=== PATIENT | female | born 1995 | race Caucasian/White ===

== ENCOUNTER 2021-10-01 14:36 | Emergency (ER) | payer OTHER ==
--- NOTE | 2021-10-01 14:50 | EDM.PDOC ---
ED [facility] GENERAL MEDICAL PROBLEM - General Chief Complaint: ENT Problem Stated Complaint: BLOODY NOSE Time Seen by Provider: 10/01/21 14:36 Source of Information: Reports: Patient History Limitations: Reports: No Limitations - History of Present Illness INITIAL COMMENTS - FREE TEXT/NARRATIVE: In the emergency department with complaint of a nosebleed. Patient states that nosebleed started approximately 20 minutes prior to arrival. Patient states that she does not have any injury to her nasal cavity she gets nosebleeds frequently. Patient states that it is more common in the wintertime when it is dry. She does use saline sprays to help keep the mucosal wet. She states that she has had to have her nose cauterized 2 times before related to nasal bleeds. Patient denies any trauma or blood thinners. Onset: Sudden Location: Reports: Head Quality: Reports: Other Severity: Mild Improves with: Reports: None Worsens with: Reports: None ED ROS GENERAL - Review of Systems Review Of Systems: Comprehensive ROS is negative, except as noted in HPI. Constitutional: Reports: No Symptoms HEENT: Reports: Nosebleed Respiratory: Reports: No Symptoms Cardiovascular: Reports: No Symptoms Endocrine: Reports: No Symptoms GI/Abdominal: Reports: No Symptoms : Reports: No Symptoms Musculoskeletal: Reports: No Symptoms Skin: Reports: No Symptoms Neurological: Reports: No Symptoms Psychiatric: Reports: No Symptoms Hematologic/Lymphatic: Reports: No Symptoms Immunologic: Reports: No Symptoms ED EXAM, GENERAL - Physical Exam Exam: See Below Exam Limited By: No Limitations General Appearance: Alert, WD/WN, No Apparent Distress Eye Exam: Bilateral Eye: EOMI Nose: Nasal Drainage Throat/Mouth: Normal Inspection, Normal Voice, No Airway Compromise Head: Atraumatic, Normocephalic Neck: Normal Inspection, Supple, Non-Tender Respiratory/Chest: No Respiratory Distress, Lungs Clear, Normal Breath Sounds, No Accessory Muscle Use, Chest Non-Tender Cardiovascular: Normal Peripheral Pulses, Regular Rate, Rhythm, No Edema GI/Abdominal: Normal Bowel Sounds, Soft, Non-Tender Extremities: Normal Inspection, Normal Range of Motion, No Pedal Edema, Normal Capillary Refill Neurological: Alert, Oriented, Normal Cognition, Normal Gait Psychiatric: Anxious Skin Exam: Warm, Dry, Intact, Normal Color ED GENERAL MEDICAL PROCEDURES - Additional/Other Procedure(s) Other (Free Text) Procedure(s): cautery of nasal cavity- both nostrils with silver nitrite stick. with success. no complications noted Departure - Departure Time of Disposition: 15:30 Disposition: Home, Self-Care 01 Condition: Good Clinical Impression: Nasal bleeding - Discharge Information *PRESCRIPTION DRUG MONITORING PROGRAM REVIEWED*: Not Applicable *COPY OF PRESCRIPTION DRUG MONITORING REPORT IN PATIENT NAVDEEP: Not Applicable Instructions: Nosebleed, Adult, [id number] Forms: ED Department Discharge - Assessment/Plan Assessment:: 1. nasal bleed Plan: 1. manual pressure bending forward 2. ice pack to back of neck 3. 4. Patient and nursing staff was updated regarding the plan of care 5. Education provided the patient regarding activity, diet, rest, [id number] medication modalities, and follow-up care was provided 6. Patient and family are agreeable to the above plan of care 7. All questions and concerns were addressed with the patient and family prior to discharge
== END 2021-10-01 15:35 | disposition home or self-care (01) ==
LOC: VM.ED 14:36
DX: R04.0 Epistaxis (principal)
CPT/HCPCS: 30901; 99283; 99283-25